=== PATIENT | female | born 1980 | race African-American/Black ===

== ENCOUNTER 2022-12-06 04:06 | Day surgery (SDC) | payer BC ==
[2022-11-30 14:59] VITALS: BMI 43.2
[2022-12-06] MEDS ORDERED: oxyCODONE HCL 5 MG TABLET PO PRN ×2 (09:38→10:16)
[2022-12-06] MEDS ORDERED: PROMETHAZINE HCL 25 MG/1 ML VIAL IVPUSH PRN (09:38)
[2022-12-06] MEDS ORDERED: LACTATED RINGERS SOLUTION 1,000 ML IV SCH (09:45)
[2022-12-06] MEDS ORDERED: MIDAZOLAM HCL 2 MG/2 ML SINGLE DOSE VIAL ONE (09:51)
[2022-12-06] MEDS ORDERED: GLYCOPYRROLATE 0.2 MG/1 ML VIAL ONE (09:52)
[2022-12-06] MEDS ORDERED: KETOROLAC TROMETHAMINE 30 MG/1 ML VIAL ONE (10:12)
[2022-12-06] MEDS ORDERED: IBUPROFEN 400 MG TABLET (FP) PO PRN (10:16)
[2022-12-06] MEDS ORDERED: ACETAMINOPHEN 325 MG TABLET (FP) PO PRN (10:16)
[2022-12-06] MEDS ORDERED: PROPOFOL 20 ML ONE (10:48)
[2022-12-06] MEDS ORDERED: METOPROLOL TARTRATE 5 MG/5 ML VIAL ONE (10:53)
[2022-12-06] MEDS ORDERED: LIDOCAINE HCL/PF 2% SDV 5ML VIAL ONE (10:54)
[2022-12-06 12:12] VITALS: BP 139/81; PULSE 56; RESP 18
[2022-12-06 13:04] VITALS: TEMP 97
== END 2022-12-06 12:50 | disposition home or self-care (01) ==
LOC: JASU-SURG 04:06
PROVIDERS: ATTEND Obstetrics & Gynecology
PROC: 0UB98ZZ Excision of Uterus, Via Natural or Artificial Opening Endoscopic (ICD-10-PCS; principal; 2022-12-06 09:00)
DX: N92.0 Excessive and frequent menstruation with regular cycle (principal); D25.0 Submucous leiomyoma of uterus
CPT/HCPCS: 81025; 88305-TC; 94760